=== PATIENT | female | born 1980 | race Caucasian/White ===

== ENCOUNTER 2017-07-16 04:31 | Inpatient (IN) | payer OTHER ==
[2017-07-16] MEDS ORDERED: TERBUTALINE SULF 1 MG/1ML SQ ONE (04:50)
[2017-07-16] MEDS ORDERED: PENICILLIN 5 MU in NA CHLORIDE 0.9% 100 ML IV ONE (05:08)
[2017-07-16] MEDS ORDERED: Ringers Lactate 1,000 ML IV PRN (05:08)
[2017-07-16] MEDS ORDERED: TERBUTALINE SULF 1 MG/1ML ONE (05:13)
[2017-07-16] MEDS ORDERED: Ringers Lactate 1,000 ML IV ONE (05:29)
[2017-07-16] MEDS ORDERED: BUTORPHANOL 1 MG/ML INJ IV ONE ×2 (05:36→06:50)
[2017-07-16] MEDS ORDERED: PROMETHAZINE 25 MG/ML VIAL IV PRN ×2 (05:36→06:50)
[2017-07-16 05:41] LABS: RPR Titer ND
[2017-07-16] MEDS ORDERED: PROMETHAZINE 25 MG/ML VIAL ONE (05:41)
[2017-07-16] MEDS ORDERED: BUTORPHANOL 1 MG/ML INJ ONE (05:41)
[2017-07-16 05:51] LABS: Absolute Lymphocytes (CBC) 2.8 K/uL (0.7-4.9); Absolute Monocytes 0.5 K/uL (0.1-1.3); Absolute Neutrophil 7.7 K/uL (1.8-8.0); Basophils % 0.2 % (0-1.3); Eosinophils % 0.7 % (0-4.4); Hematocrit 28.5 % (36.0-45.0); Lymphocytes % 24.9 % (15.3-44.8); MCH 33.7 pg (27.0-35.0); MCV 94.2 fL (80-100); MPV 8.2 fL (7.6-11.3); Monocytes % 4.6 % (3.3-12.3); RBC Red Blood Cell Count 3.02 M/uL (3.86-4.86)
--- NOTE | 2017-07-16 05:59 | P.PN ---
Date of Service: 07/16/17 Pt is a 36 yo mcf at 33+ wks gestation followed without significant issues who noted onset of contractions this early am, and presented to L&D and was noted to be 5cm. Will plan on delivery here, do not feel appropriate/safe to transfer multip at such advanced dilation. PCN prophylaxis instituted. Process explained to pt. and .
[2017-07-16] MEDS ORDERED: Ringers Lactate 1,000 ML IV SCH (06:00)
[2017-07-16] MEDS ORDERED: METHYLERGONOVINE 0.2MG/ML AMP IM ONE (06:15)
[2017-07-16] MEDS ORDERED: OXYTOCIN/LR 20 UNIT/1,000 ML BAG IV ONE (06:17)
--- NOTE | 2017-07-16 06:34 | PREOPHP ---
Date of Admission: 07/16/2017 History Of Present Illness: Ms. Alcantara is a 36-year-old female, 4, para 2- 0-1-2, now at 33+ weeks gestation. She has been followed by me during this without signifi cant complications. She woke up this morning with contractions. She denies significant vaginal blee ding or spotting. After an hour, she presented to Labor and Delivery where she was noted to be 5 cm. On admission, she denies recent cough, cold, fever. Past Medical History: Please see record. Family History: Please see record. Review of Systems: She reports no recent cough, cold, fever, or chills. No recent nausea or vomiting. She denies any b reast lumps. She denies any urine symptoms or bowel issues. Her infant has been active. She has no history of recent HSV outbreak. Physical Examination: General: Reveals female in moderate discomfort. Neck: Supple without adenopathy or thyromegaly. Lungs: Clear. Cardiac: Regular rate and rhythm without murmurs. Breasts: Not examined. Abdomen: Nontender. Estimated weight approximately 4+ pounds. Pelvic: Cervix now 5+ to 6 cm dilated and 85% effaced, vertex at 0 to +1 station. Extremities: No cyanosis, clubbing, or edema. Plan: The patient will be admitted for delivery. Possibility of needing transfer the infant because prematurity is discussed. Has received 1 dose of penicillin 5 million units for strep prophylaxis. We will have informatics consultant on-ca ll attend the delivery. BETTY/CHRIS Voice ID: [id number]
[2017-07-16] MEDS ORDERED: METHYLERGONOVINE 0.2MG/ML AMP IM PRN ×2 (06:50→08:44)
[2017-07-16] MEDS ORDERED: CARBOPROST TROME 250 MCG/ML IM ONE (06:50)
[2017-07-16] MEDS ORDERED: OXYTOCIN/LR 20 UNIT/1,000 ML BAG IV SCH ×2 (07:00→09:00)
[2017-07-16] MEDS ORDERED: LIDOCAINE 1% 20 ML MDV ONE (07:24)
[2017-07-16] MEDS ORDERED: IBUPROFEN 200 MG TAB PO PRN (08:44)
[2017-07-16] MEDS ORDERED: METHYLERGONOVINE 0.2 MG TAB PO PRN (08:44)
[2017-07-16] MEDS ORDERED: ACETAMINOPHEN 500 MG TAB PO PRN (08:44)
[2017-07-16] MEDS ORDERED: ONDANSETRON 4 MG (ODT) TAB PO PRN (08:44)
[2017-07-16] MEDS ORDERED: Tdap (Diph,Pertuss(Acell),Tet Vac) 0.5 ML SYR IMVAC ONE (08:44)
[2017-07-16] MEDS ORDERED: MEASLES,MUMPS,RUBELLA VAC 0.5ML SQVAC ONE (08:44)
--- NOTE | 2017-07-16 08:47 | P.BOP ---
Preoperative diagnosis: 33 week , labor Postoperative diagnosis: same Primary procedure: SCVD viable female infant Estimated blood loss: less than 200ml Complications: None Transferred to: Other ([id number]) Condition: Good
[2017-07-16 14:59] VITALS: BP 125/56; TEMP 97.9
[2017-07-16 19:49] VITALS: BMI 27.1
[2017-07-16 22:17] LABS: RPR (Rapid Plasma Reagin) NON-REACT (NON-REACT)
[2017-07-18 03:49] LABS: HBsAG Nonreactive (Nonreactive)
--- NOTE | 2017-07-19 05:40 | DS ---
Date of Discharge: 07/16/2017 Final Hospital Discharge Diagnosis: 33 weeks , delivered. Complications: None. Procedures: Artificial rupture of membranes, Pitocin augmentation of labor, spontaneous controlled vaginal delivery of viable female infant. Hospital Course: The patient is a 36-year-old female, 5, para 2-0-2-2, at 33 weeks gestation, admitted in labor. Because of advanced cervical dilatation, history of rapid labor with her second , the decision was made to deliver the at our institution rather then an attempt to transport. She was prophylaxed with penicillin because of labor and delivered a 5-pound, 5-ounce female , Apgars 9 and 9. was subsequently transferred to another facility with a Intensive Care Unit because of increased oxygen requirements. Mother was dismissed in the afternoon of the delivery so that she could be with her infant. Lab work obtained during this hospital stay included an admission hemoglobin and hematocrit of 10.2 and 28.5. She is Rh positive blood type. She was dismissed to continue taking her iron and vitamins, to use ibuprofen for pain relief, to be seen back my office in approximately 2 week period of time with her usual post vaginal delivery activity restrictions. BETTY/CHRIS Voice ID: [id number] Report ID: [id number] [id number]
--- NOTE | 2017-07-19 10:22 | DN ---
Surgeon: Karthikeyan Rosen MD Ms. Alcantara is a 36-year-old, , female, 5, para 2-0-2-2, at approximately 33 weeks gestation. She has been followed by me during this without significant complication. She noticed onset of contractions early this morning, presented to Labor and Delivery and was noted to be 5 cm dilated. Because of multiparous status, advanced cervical dilatation with a history of r apid labor with her second infant, it was felt that she could not be safely transported to a facility with Intensive Care Unit. Because of this, preparations for delivery at our institution we re started. Rupture of membranes performed. Pitocin augmentation of labor was begun when she did no t change her cervix significantly. She had a first stage of labor approximately 3 hours and 30 minut es, second stage of labor 14 minute. She delivered by spontaneous controlled vaginal delivery a 5 po und 5 ounce female infant, 9 and 9, in vertex presentation. After delayed cord clamping, the c ord was cut, and the infant placed in a warmer, attended to by Dr. Balbuena for Pediatrics. The cord blood was obtained. The placenta was spontaneously expelled and appeared to be intact. Intrauterin e examination revealed no retained placental fragments. She suffered no lacerations. Estimated tota l blood loss was less than 200 cc. She received 1 mg of Stadol and 12.5 mg of Phenergan IV, prior to the of the infant. She declined epidural placement initially. She received 1 mg of [address]adol po st because of discomfort. She was prophylaxed with 5 million units of penicillin for possible beta strep carriage secondary to premature . BETTY/CHRIS Voice ID: [id number] Report ID: [id number]
== END 2017-07-16 15:00 | disposition home or self-care (01) | DRG 775 ==
LOC: L&D 04:31 → 2ND-WC 05:12
PROVIDERS: ADMIT Specialist; ATTEND Specialist
PROC: 10907ZC Drainage of Amniotic Fluid, Therapeutic from Products of Conception, Via Natural or Artificial Opening (ICD-10-PCS; principal; 2017-07-16)
PROC: 10E0XZZ Delivery of Products of Conception, External Approach (ICD-10-PCS; 2017-07-16)
DX: O60.14X0 Preterm labor third trimester with preterm delivery third trimester, not applicable or unspecified (principal); Z3A.33 33 weeks gestation of pregnancy; Z37.0 Single live birth; Z23 Encounter for immunization; Z88.2 Allergy status to sulfonamides
CPT/HCPCS: 36415; 85025; 86592; 86901; 87340; 88305; 88307; 90707; 90715; J0595; J2210; J2550; J2590; J3105